=== PATIENT | female | born 1980 | race African-American/Black ===

== ENCOUNTER 2018-07-20 14:05 | Emergency (ER) | payer BC ==
[~2018-07-20] VITALS: Ht 152.4 cm; Wt 80.0 kg
[~2018-07-20 14:05] MED LIST: PROMETHAZINE25 MG OR
[2018-07-20] MEDS ORDERED: FLEXERIL PO (15:19)
[2018-07-20] MEDS ORDERED: TORADOL PO (15:19)
[2018-07-20] MEDS ORDERED: ONDANSETRON4 MG PO (15:19)
[2018-07-20 15:44] VITALS: BP 145/84
== END 2018-07-20 15:49 | disposition home or self-care (01) | DRG 103 ==
LOC: ED 14:05
DX: R51 Headache (principal); R11.0 Nausea